=== PATIENT | male | born 1940 | race Caucasian/White ===

== ENCOUNTER 2024-07-20 05:01 | Emergency (ER) | payer MEDICARE, BC | END 2024-07-20 08:00 | disposition EXP | LOC: KA.ED 05:01 | DX: I46.9 Cardiac arrest, cause unspecified (principal); I13.0 Hypertensive heart and chronic kidney disease with heart failure and stage 1 through stage 4 chronic kidney disease, or unspecified chronic kidney disease; I50.9 Heart failure, unspecified; N18.9 Chronic kidney disease, unspecified; E11.22 Type 2 diabetes mellitus with diabetic chronic kidney disease; E66.9 Obesity, unspecified; Z95.0 Presence of cardiac pacemaker; Z79.82 Long term (current) use of aspirin; Z79.899 Other long term (current) drug therapy; Z88.8 Allergy status to other drugs, medicaments and biological substances; Z78.9 Other specified health status | CPT/HCPCS: 92950; 99285-25; Q3014 ==